=== PATIENT | male | born 1970 | race Caucasian/White ===

== ENCOUNTER 2017-10-05 08:14 | Emergency (ER) | payer MEDICAID ==
[~2017-10-05] VITALS: Ht 185.4 cm; Wt 104.0 kg
[2017-10-05 08:28] VITALS: Ht 185.4 cm; Wt 104.0 kg
[2017-10-05 10:28] VITALS: BP 139/93
== END 2017-10-05 10:28 | disposition home or self-care (01) ==
LOC: ED 08:14
DX: F41.9 Anxiety disorder, unspecified (principal)